=== PATIENT | female | born 1990 | race Caucasian/White ===

== ENCOUNTER → 2021-03-30 10:47 | Observation (INO) | END | disposition home or self-care (01) | LOC: 1NENULAB | PROVIDERS: ADMIT Obstetrics & Gynecology; ATTEND Obstetrics & Gynecology ==

== ENCOUNTER 2021-06-01 05:54 | Inpatient (IN) ==
[2021-06-01] MEDS ORDERED: Metoclopramide 10 MG/2 ML VIAL IVP PRN (06:17)
[2021-06-01] MEDS ORDERED: Naloxone 0.4 MG/ML INJ IVP PRN ×2 (06:17→08:20)
[2021-06-01] MEDS ORDERED: Ondansetron 4 MG/2 ML VIAL IVP PRN ×2 (06:17→08:20)
[2021-06-01] MEDS ORDERED: *HR* Nalbuphine 10 MG/ML AMPUL IV PRN (06:17)
[2021-06-01] MEDS ORDERED: Azithromycin 500 MG in 0.9 % Sodium Chloride 250 ML IVPB PRN (06:17)
[2021-06-01] MEDS ORDERED: Famotidine 20 MG/2 ML VIAL IVP PRN (06:17)
[2021-06-01] MEDS ORDERED: Lidocaine 1% 20 ML MDV ID PRN (06:17)
[2021-06-01] MEDS ORDERED: miSOPROStoL 25 MCG TABLET PO PRN (06:27)
[2021-06-01 08:15] LABS: Basophils # 0.1 K/mcL (0.0-0.2); Basophils % 0.5 %; Eosinophils # 0.1 K/mcL (0.0-0.6); Eosinophils % 1.1 %; Hemoglobin 12.5 g/dL (11.5-15.4); Immature Granulocytes % 0.8 % (0-4); Lymphocytes # 2.5 K/mcL (0.6-4.6); Lymphocytes % 26.4 %; Mean Corpuscular HGB Conc 32.9 g/dL (31.6-35.5); Mean Corpuscular Hemoglobin 28.3 pg (28.0-33.3); Mean Corpuscular Volume 86.2 fL (83.0-100.0); Mean Platelet Volume 12.2 fL (9.4-12.4); Monocytes # 0.7 K/mcL (0.0-1.3); Monocytes % 7.7 %; Platelet Count 234 K/mcL (140-400); Red Blood Count 4.41 M/mcL (3.82-4.97); Red Cell Distribution Width 14.1 % (11.5-14.5); Segmented Neutrophils % 63.5 %; White Blood Count 9.4 K/mcL (4.3-11.1)
[2021-06-01] MEDS ORDERED: Oxytocin 20 units/ LR 1000 mL 20 UNIT/1,000 ML BAG IVC SCH (08:15)
[2021-06-01] MEDS ORDERED: Ropivacaine/PF 0.2% 20 ML VIAL EP ONE (08:20)
[2021-06-01] MEDS ORDERED: EPHEDrine 50 MG/ML VIAL IVP PRN (08:20)
[2021-06-01] MEDS ORDERED: *HR* FentaNYL (PF) 100 MCG/2 ML VIAL EP ONE (08:20)
[2021-06-01] MEDS ORDERED: Epidural Premix (fent/bupiv) 110 ML EP SCH (08:30)
[2021-06-01 09:21] LABS: Amphetamine Screen,Urine Negative ng/mL (Cutoff=1000); Barbiturate Screen,Urine Negative ng/mL (Cutoff=200); Benzodiazepines Screen,Urine Negative ng/mL (Cutoff=200); Cannabinoid Screen,Urine Negative ng/mL (Cutoff = 50); Cocaine Screen,Urine Negative ng/mL (Cutoff= 300); Opiate Screen,Urine Negative ng/mL (Cutoff=300); Phencyclidine Screen,Urine Negative ng/mL (Cutoff=25)
[2021-06-01] MEDS: Ringers Solution, Lactated 1,000 ML IVC SCH ×3 (12:15→16:09)
[2021-06-01] MEDS ORDERED: Ropivacaine/PF 0.2% 20 ML VIAL ONE (13:11)
[2021-06-02] MEDS ORDERED: Measles/Mumps/Rubella Vacc 0.5 ML VIAL SQ PRN (07:54)
[2021-06-02] MEDS ORDERED: Rho Immune Globulin 1,500 UNIT SYRINGE IM PRN (07:54)
[2021-06-02] MEDS ORDERED: Lanolin 7 G OINT...G. TP PRN (07:54)
[2021-06-02] MEDS ORDERED: Ondansetron ODT 4 MG TAB.RAPDIS SL PRN (07:54)
[2021-06-02] MEDS ORDERED: Oxytocin 20 units/ LR 1000 mL 20 UNIT/1,000 ML BAG IVC SCH (07:54)
[2021-06-02] MEDS ORDERED: Benzocaine/Menthol 56 GM AEROSOL SPRAY TP PRN (07:54)
[2021-06-02] MEDS: Acetaminophen 325 MG TABLET PO SCH ×3 (08:21→20:31)
[2021-06-02] MEDS: Cholecalciferol (D-3) 1,000 UNIT (25MCG) TABLET PO SCH (08:22)
[2021-06-02] MEDS: Prenatal Vit/FA 1 EACH TABLET PO SCH (08:22)
[2021-06-02] MEDS: Ringers Solution, Lactated 1,000 ML IVC SCH (08:22)
[2021-06-02] MEDS ORDERED: Loratadine 10 MG TABLET PO SCH ×2 (09:00→21:00)
[2021-06-02] MEDS: Ibuprofen 600 MG TABLET PO SCH ×2 (11:27→17:23)
[2021-06-03 05:51] VITALS: TEMP 97.9; O2SAT 98
[2021-06-03 06:22] LABS: Basophils # 0.1 K/mcL (0.0-0.2); Basophils % 0.4 %; Eosinophils # 0.2 K/mcL (0.0-0.6); Eosinophils % 1.9 %; Hematocrit 33.4 % (35.3-44.9); Hemoglobin 11.1 g/dL (11.5-15.4); Immature Granulocytes % 0.9 % (0-4); Lymphocytes # 2.9 K/mcL (0.6-4.6); Lymphocytes % 24.2 %; Mean Corpuscular HGB Conc 33.2 g/dL (31.6-35.5); Mean Corpuscular Volume 87.2 fL (83.0-100.0); Mean Platelet Volume 11.8 fL (9.4-12.4); Monocytes # 0.7 K/mcL (0.0-1.3); Monocytes % 5.8 %; Platelet Count 191 K/mcL (140-400); Red Blood Count 3.83 M/mcL (3.82-4.97); Red Cell Distribution Width 14.5 % (11.5-14.5); Segmented Neutrophils % 66.8 %
[2021-06-03 08:26] VITALS: BP 104/65; PULSE 86
[2021-06-03] MEDS: Ibuprofen 600 MG TABLET PO SCH (09:00)
[2021-06-03] MEDS: Prenatal Vit/FA 1 EACH TABLET PO SCH (09:00)
[2021-06-03] MEDS: Cholecalciferol (D-3) 1,000 UNIT (25MCG) TABLET PO SCH (09:00)
== END 2021-06-03 12:00 | disposition home or self-care (01) | DRG 807 ==
LOC: 1NENULAB 05:54 → 1NENUOBS 06-02 10:06
PROVIDERS: ADMIT Student in an Organized Health Care Education/Training Program; ATTEND Student in an Organized Health Care Education/Training Program